=== PATIENT | male | born 1980 | race African-American/Black ===

== ENCOUNTER 2022-08-08 10:55 | Inpatient (IN) | payer OTHER ==
[2022-08-08 11:35] VITALS: BMI 22.2
[2022-08-08] MEDS ORDERED: BENZOCAINE/MENTHOL (CHLORASEPTIC ) LOZENGE MM PRN (13:03)
[2022-08-08] MEDS ORDERED: IBUPROFEN 400 MG TABLET (FP) PO PRN (13:03)
[2022-08-08] MEDS ORDERED: MAGNESIUM HYDROX 2400MG/30ML ORAL SUSPENSION 30 ML CUP PO PRN (13:03)
[2022-08-08] MEDS ORDERED: MAG HYDROX/AL HYDROX/SIMETH 30 ML UNIT-DOSE CUP PO PRN (13:03)
[2022-08-08] MEDS ORDERED: hydrOXYzine PAMOATE 25 MG CAPSULE (FP) PO PRN (13:03)
[2022-08-08] MEDS ORDERED: POLYETHYLENE GLYCOL (HEALTHYLAX) 3350 17 GM PACKET PO PRN (13:03)
[2022-08-08] MEDS ORDERED: IBUPROFEN 600 MG TABLET (FP) PO PRN (13:03)
[2022-08-08] MEDS ORDERED: METHOCARBAMOL 500 MG TABLET PO PRN (13:03)
[2022-08-08] MEDS ORDERED: ONDANSETRON *ODT* 4 MG TABLET SL PRN (13:03)
[2022-08-08] MEDS ORDERED: DICYCLOMINE HCL 10 MG CAPSULE PO PRN (13:03)
[2022-08-08] MEDS ORDERED: ACETAMINOPHEN 325 MG TABLET (FP) PO PRN ×2 (13:03)
[2022-08-08] MEDS ORDERED: LOPERAMIDE HCL 2 MG CAPSULE PO PRN (13:03)
[2022-08-08] MEDS ORDERED: NICOTINE POLACRILEX 2 MG GUM BUC PRN (13:03)
[2022-08-08] MEDS ORDERED: BISMUTH SUBSALICYLATE 524 MG/30 ML PO PRN (13:03)
[2022-08-08] MEDS: NICOTINE 14 MG/24 HOURS TOPICAL PATCH TD SCH (13:42)
[2022-08-08] MEDS ORDERED: NICOTINE 14 MG/24 HOURS TOPICAL PATCH TD ONE (14:04)
[2022-08-08] MEDS: NICOTINE 10 MG CARTRIDGE (INHALER) IH PRN ×3 (15:22→23:22)
[2022-08-08] MEDS ORDERED: THIAMINE HCL 100 MG TABLET (FP) PO SCH (22:00)
[2022-08-08] MEDS ORDERED: MELATONIN 5 MG TABLETS PO SCH (22:00)
[2022-08-08] MEDS ORDERED: ATORVASTATIN CA 40 MG TABLET (FP) PO SCH (22:00)
[2022-08-08] MEDS: levETIRAcetam XR 750 MG TAB PO SCH (22:26)
[2022-08-09] MEDS ORDERED: PRENATAL VITAMINS W/ FOLIC ACID TABLET (FP) PO SCH (10:00)
[2022-08-09] MEDS: NICOTINE 14 MG/24 HOURS TOPICAL PATCH TD SCH (10:08)
[2022-08-09] MEDS: levETIRAcetam XR 750 MG TAB PO SCH (10:08)
[2022-08-09] MEDS: NICOTINE 10 MG CARTRIDGE (INHALER) IH PRN (10:21)
[2022-08-09 11:18] LABS: HEMATOCRIT 35.4 % (35.4-49); HEMOGLOBIN 11.8 GM/dL (11.7-16.9); MCH 33.2 pg (25.7-33.7); MCHC 33.3 g/dl (32.0-35.9); MEAN CELL VOLUME 99.6 fl (80-96); PLATELET COUNT 114 10^3/uL (134-434); RBC 3.56 M/mm3 (4.00-5.60); RDW 15.9 % (11.9-15.9); WHITE BLOOD COUNT 4.8 K/mm3 (4.0-10.0)
[2022-08-09 11:22] LABS: BLOOD UREA NITROGEN 13.7 mg/dL (7-18); CALCIUM 9.5 mg/dL (8.5-10.1)
[2022-08-09 11:24] LABS: ALBUMIN 4.3 g/dl (3.4-5.0)
[2022-08-09 11:27] LABS: CREATININE 1.2 mg/dL (0.55-1.3)
[2022-08-09 11:28] LABS: BILIRUBIN,TOTAL 0.5 mg/dL (0.2-1); TOT PROT 8.5 g/dl (6.4-8.2)
[2022-08-09 12:48] VITALS: BP 134/88; PULSE 100; RESP 18; TEMP 97.8
== END 2022-08-09 01:22 | disposition other institution (70) | DRG 775 ==
LOC: YASAS 10:55 → Y3N 13:51
PROVIDERS: ADMIT Allergy & Immunology; ATTEND Surgery
PROC: HZ2ZZZZ Detoxification Services for Substance Abuse Treatment (ICD-10-PCS; principal; 2022-08-08)
DX: F10.230 Alcohol dependence with withdrawal, uncomplicated (principal); F17.210 Nicotine dependence, cigarettes, uncomplicated; F41.9 Anxiety disorder, unspecified; Z21 Asymptomatic human immunodeficiency virus [HIV] infection status; E78.1 Pure hyperglyceridemia; R56.9 Unspecified convulsions; Z86.19 Personal history of other infectious and parasitic diseases
CPT/HCPCS: 36415; 80053; 85027; 86593; 86780; 87811; 93005; 93010; C9803-CS; U0003; U0005

== ENCOUNTER 2022-08-09 13:31 | Inpatient (IN) | payer OTHER ==
[2022-08-09] MEDS ORDERED: P-EPHED 60MG/TRIPROLIDI 2.5MG TABLET PO PRN (15:01)
[2022-08-09] MEDS ORDERED: BENZOCAINE/MENTHOL (CHLORASEPTIC ) LOZENGE MM PRN (15:01)
[2022-08-09] MEDS ORDERED: MAG HYDROX/AL HYDROX/SIMETH 30 ML UNIT-DOSE CUP PO PRN (15:01)
[2022-08-09] MEDS ORDERED: LOPERAMIDE HCL 2 MG CAPSULE PO PRN (15:01)
[2022-08-09] MEDS ORDERED: MAGNESIUM HYDROX 2400MG/30ML ORAL SUSPENSION 30 ML CUP PO PRN (15:01)
[2022-08-09] MEDS ORDERED: POLYETHYLENE GLYCOL (HEALTHYLAX) 3350 17 GM PACKET PO PRN (15:01)
[2022-08-09] MEDS ORDERED: ACETAMINOPHEN 325 MG TABLET (FP) PO PRN (15:01)
[2022-08-09] MEDS ORDERED: guaiFENesin 200 MG/10 ML 10 ML UNIT-DOSE CUPS PO PRN (15:01)
[2022-08-09] MEDS: NICOTINE 10 MG CARTRIDGE (INHALER) IH PRN (19:14)
[2022-08-09] MEDS: MELATONIN 5 MG TABLETS PO SCH (21:06)
[2022-08-09] MEDS: THIAMINE HCL 100 MG TABLET (FP) PO SCH (21:06)
[2022-08-09] MEDS: ATORVASTATIN CA 40 MG TABLET (FP) PO SCH (21:08)
[2022-08-09] MEDS: levETIRAcetam XR 750 MG TAB PO SCH (23:30)
[2022-08-10] MEDS: NICOTINE 10 MG CARTRIDGE (INHALER) IH PRN ×2 (08:21→21:13)
[2022-08-10] MEDS: levETIRAcetam XR 750 MG TAB PO SCH ×2 (10:35→21:13)
[2022-08-10] MEDS: PRENATAL VITAMINS W/ FOLIC ACID TABLET (FP) PO SCH (10:35)
[2022-08-10] MEDS: NICOTINE 7 MG/24 HOURS TOPICAL PATCH TD SCH (10:35)
[2022-08-10] MEDS: MELATONIN 5 MG TABLETS PO SCH (21:12)
[2022-08-10] MEDS: ATORVASTATIN CA 40 MG TABLET (FP) PO SCH (21:12)
[2022-08-10] MEDS: THIAMINE HCL 100 MG TABLET (FP) PO SCH (21:12)
[2022-08-11] MEDS: PRENATAL VITAMINS W/ FOLIC ACID TABLET (FP) PO SCH (10:55)
[2022-08-11] MEDS: NICOTINE 7 MG/24 HOURS TOPICAL PATCH TD SCH (10:55)
[2022-08-11] MEDS: NICOTINE 10 MG CARTRIDGE (INHALER) IH PRN ×2 (10:55→21:15)
[2022-08-11] MEDS: levETIRAcetam XR 750 MG TAB PO SCH ×2 (10:55→21:15)
[2022-08-11] MEDS: ATORVASTATIN CA 40 MG TABLET (FP) PO SCH (21:15)
[2022-08-11] MEDS: MELATONIN 5 MG TABLETS PO SCH (21:16)
[2022-08-11] MEDS: THIAMINE HCL 100 MG TABLET (FP) PO SCH (21:16)
[2022-08-12] MEDS: NICOTINE 7 MG/24 HOURS TOPICAL PATCH TD SCH (10:33)
[2022-08-12] MEDS: PRENATAL VITAMINS W/ FOLIC ACID TABLET (FP) PO SCH (10:33)
[2022-08-12] MEDS: levETIRAcetam XR 750 MG TAB PO SCH ×2 (10:33→21:08)
[2022-08-12] MEDS: NICOTINE 10 MG CARTRIDGE (INHALER) IH PRN ×2 (10:34→21:09)
[2022-08-12] MEDS: THIAMINE HCL 100 MG TABLET (FP) PO SCH (21:07)
[2022-08-12] MEDS: ATORVASTATIN CA 40 MG TABLET (FP) PO SCH (21:07)
[2022-08-12] MEDS: MELATONIN 5 MG TABLETS PO SCH (22:32)
[2022-08-13] MEDS: PRENATAL VITAMINS W/ FOLIC ACID TABLET (FP) PO SCH (10:53)
[2022-08-13] MEDS: NICOTINE 7 MG/24 HOURS TOPICAL PATCH TD SCH (10:53)
[2022-08-13] MEDS: NICOTINE 10 MG CARTRIDGE (INHALER) IH PRN ×2 (10:53→21:10)
[2022-08-13] MEDS: levETIRAcetam XR 750 MG TAB PO SCH ×2 (10:54→21:10)
[2022-08-13] MEDS: THIAMINE HCL 100 MG TABLET (FP) PO SCH (21:09)
[2022-08-13] MEDS: ATORVASTATIN CA 40 MG TABLET (FP) PO SCH (21:10)
[2022-08-13] MEDS: MELATONIN 5 MG TABLETS PO SCH (22:28)
[2022-08-14] MEDS: PRENATAL VITAMINS W/ FOLIC ACID TABLET (FP) PO SCH (10:18)
[2022-08-14] MEDS: NICOTINE 7 MG/24 HOURS TOPICAL PATCH TD SCH (10:18)
[2022-08-14] MEDS: levETIRAcetam XR 750 MG TAB PO SCH ×2 (10:19→21:29)
[2022-08-14] MEDS: NICOTINE 10 MG CARTRIDGE (INHALER) IH PRN ×2 (10:19→21:29)
[2022-08-14] MEDS ORDERED: ATORVASTATIN CA 20 MG TABLET (FP) ONE (18:42)
[2022-08-14] MEDS: THIAMINE HCL 100 MG TABLET (FP) PO SCH (21:29)
[2022-08-14] MEDS: ATORVASTATIN CA 40 MG TABLET (FP) PO SCH (21:29)
[2022-08-14] MEDS: MELATONIN 5 MG TABLETS PO SCH (22:41)
[2022-08-15] MEDS: NICOTINE 7 MG/24 HOURS TOPICAL PATCH TD SCH (10:23)
[2022-08-15] MEDS: PRENATAL VITAMINS W/ FOLIC ACID TABLET (FP) PO SCH (10:23)
[2022-08-15] MEDS: NICOTINE 10 MG CARTRIDGE (INHALER) IH PRN ×2 (10:23→21:11)
[2022-08-15] MEDS: levETIRAcetam XR 750 MG TAB PO SCH ×2 (10:23→21:10)
[2022-08-15] MEDS: ATORVASTATIN CA 40 MG TABLET (FP) PO SCH (21:10)
[2022-08-15] MEDS: THIAMINE HCL 100 MG TABLET (FP) PO SCH (21:10)
[2022-08-15] MEDS: traZODone HCL 50 MG TABLET (FP) PO SCH (21:11)
[2022-08-15] MEDS: MELATONIN 5 MG TABLETS PO SCH (22:55)
[2022-08-16] MEDS: PRENATAL VITAMINS W/ FOLIC ACID TABLET (FP) PO SCH (09:34)
[2022-08-16] MEDS: NICOTINE 7 MG/24 HOURS TOPICAL PATCH TD SCH (09:34)
[2022-08-16] MEDS: levETIRAcetam XR 750 MG TAB PO SCH ×2 (09:34→21:28)
[2022-08-16] MEDS: GABAPENTIN 100 MG CAPSULE PO SCH ×2 (13:21→21:27)
[2022-08-16] MEDS: ATORVASTATIN CA 40 MG TABLET (FP) PO SCH (21:27)
[2022-08-16] MEDS: MELATONIN 5 MG TABLETS PO SCH (21:27)
[2022-08-16] MEDS: THIAMINE HCL 100 MG TABLET (FP) PO SCH (21:27)
[2022-08-16] MEDS: traZODone HCL 50 MG TABLET (FP) PO SCH (21:28)
[2022-08-17] MEDS: GABAPENTIN 100 MG CAPSULE PO SCH ×3 (06:23→21:06)
[2022-08-17] MEDS: PRENATAL VITAMINS W/ FOLIC ACID TABLET (FP) PO SCH (10:41)
[2022-08-17] MEDS: NICOTINE 7 MG/24 HOURS TOPICAL PATCH TD SCH (10:41)
[2022-08-17] MEDS: levETIRAcetam XR 750 MG TAB PO SCH ×2 (10:41→21:07)
[2022-08-17] MEDS: NICOTINE 10 MG CARTRIDGE (INHALER) IH PRN (14:11)
[2022-08-17] MEDS: ATORVASTATIN CA 40 MG TABLET (FP) PO SCH (21:06)
[2022-08-17] MEDS: THIAMINE HCL 100 MG TABLET (FP) PO SCH (21:07)
[2022-08-17] MEDS: MELATONIN 5 MG TABLETS PO SCH (22:13)
[2022-08-17] MEDS: traZODone HCL 50 MG TABLET (FP) PO SCH (22:13)
[2022-08-18] MEDS: GABAPENTIN 100 MG CAPSULE PO SCH ×3 (06:22→21:30)
[2022-08-18] MEDS: PRENATAL VITAMINS W/ FOLIC ACID TABLET (FP) PO SCH (09:54)
[2022-08-18] MEDS: NICOTINE 7 MG/24 HOURS TOPICAL PATCH TD SCH (09:55)
[2022-08-18] MEDS: levETIRAcetam XR 750 MG TAB PO SCH ×2 (09:55→21:30)
[2022-08-18] MEDS: NICOTINE 10 MG CARTRIDGE (INHALER) IH PRN ×2 (09:56→21:30)
[2022-08-18] MEDS: ATORVASTATIN CA 40 MG TABLET (FP) PO SCH (21:29)
[2022-08-18] MEDS: THIAMINE HCL 100 MG TABLET (FP) PO SCH (21:29)
[2022-08-18] MEDS: traZODone HCL 50 MG TABLET (FP) PO SCH (22:29)
[2022-08-18] MEDS: MELATONIN 5 MG TABLETS PO SCH (22:29)
[2022-08-19] MEDS: GABAPENTIN 100 MG CAPSULE PO SCH ×3 (06:29→21:09)
[2022-08-19] MEDS: hydrOXYzine PAMOATE 25 MG CAPSULE (FP) PO PRN (06:29)
[2022-08-19] MEDS: levETIRAcetam XR 750 MG TAB PO SCH ×2 (10:41→21:08)
[2022-08-19] MEDS: NALTREXONE HCL 50 MG TABLET PO SCH (10:41)
[2022-08-19] MEDS: NICOTINE 7 MG/24 HOURS TOPICAL PATCH TD SCH (10:41)
[2022-08-19] MEDS: PRENATAL VITAMINS W/ FOLIC ACID TABLET (FP) PO SCH (10:41)
[2022-08-19] MEDS: MELATONIN 5 MG TABLETS PO SCH (21:09)
[2022-08-19] MEDS: THIAMINE HCL 100 MG TABLET (FP) PO SCH (21:09)
[2022-08-19] MEDS: ATORVASTATIN CA 40 MG TABLET (FP) PO SCH (21:09)
[2022-08-19] MEDS: traZODone HCL 50 MG TABLET (FP) PO SCH (21:09)
[2022-08-20] MEDS: hydrOXYzine PAMOATE 25 MG CAPSULE (FP) PO PRN (06:18)
[2022-08-20] MEDS: GABAPENTIN 100 MG CAPSULE PO SCH ×3 (06:18→21:15)
[2022-08-20] MEDS: levETIRAcetam XR 750 MG TAB PO SCH ×2 (09:47→21:16)
[2022-08-20] MEDS: PRENATAL VITAMINS W/ FOLIC ACID TABLET (FP) PO SCH (09:47)
[2022-08-20] MEDS: NALTREXONE HCL 50 MG TABLET PO SCH (09:47)
[2022-08-20] MEDS: NICOTINE 7 MG/24 HOURS TOPICAL PATCH TD SCH (09:47)
[2022-08-20] MEDS: NICOTINE 10 MG CARTRIDGE (INHALER) IH PRN ×3 (09:49→21:16)
[2022-08-20] MEDS: ATORVASTATIN CA 40 MG TABLET (FP) PO SCH (21:15)
[2022-08-20] MEDS: MELATONIN 5 MG TABLETS PO SCH (21:15)
[2022-08-20] MEDS: traZODone HCL 50 MG TABLET (FP) PO SCH (21:15)
[2022-08-20] MEDS: THIAMINE HCL 100 MG TABLET (FP) PO SCH (21:16)
[2022-08-21] MEDS: GABAPENTIN 100 MG CAPSULE PO SCH ×3 (06:17→21:14)
[2022-08-21] MEDS: hydrOXYzine PAMOATE 25 MG CAPSULE (FP) PO PRN (06:17)
[2022-08-21] MEDS: NICOTINE 7 MG/24 HOURS TOPICAL PATCH TD SCH (11:10)
[2022-08-21] MEDS: NALTREXONE HCL 50 MG TABLET PO SCH (11:10)
[2022-08-21] MEDS: levETIRAcetam XR 750 MG TAB PO SCH ×2 (11:10→21:14)
[2022-08-21] MEDS: PRENATAL VITAMINS W/ FOLIC ACID TABLET (FP) PO SCH (11:10)
[2022-08-21] MEDS: NICOTINE 10 MG CARTRIDGE (INHALER) IH PRN ×2 (11:10→19:29)
[2022-08-21] MEDS: traZODone HCL 50 MG TABLET (FP) PO SCH (21:14)
[2022-08-21] MEDS: MELATONIN 5 MG TABLETS PO SCH (21:14)
[2022-08-21] MEDS: ATORVASTATIN CA 40 MG TABLET (FP) PO SCH (21:14)
[2022-08-21] MEDS: THIAMINE HCL 100 MG TABLET (FP) PO SCH (21:15)
[2022-08-22] MEDS: GABAPENTIN 100 MG CAPSULE PO SCH ×3 (06:27→21:03)
[2022-08-22] MEDS: NICOTINE 10 MG CARTRIDGE (INHALER) IH PRN ×2 (06:27→21:04)
[2022-08-22] MEDS: PRENATAL VITAMINS W/ FOLIC ACID TABLET (FP) PO SCH (09:46)
[2022-08-22] MEDS: NICOTINE 7 MG/24 HOURS TOPICAL PATCH TD SCH (09:46)
[2022-08-22] MEDS: levETIRAcetam XR 750 MG TAB PO SCH ×2 (09:46→21:03)
[2022-08-22] MEDS ORDERED: NALTREXONE MICROSPHERES (VIVITROL) 380 MG DISP.SYRIN IM ONE (10:42)
[2022-08-22] MEDS: NALTREXONE HCL 50 MG TABLET PO SCH (10:55)
[2022-08-22] MEDS: BICTEGRAV/EMTRICIT/TENOFOV (BIKTARVY) 50-200-25 MG TABLET PO SCH (15:20)
[2022-08-22] MEDS: THIAMINE HCL 100 MG TABLET (FP) PO SCH (21:03)
[2022-08-22] MEDS: ATORVASTATIN CA 40 MG TABLET (FP) PO SCH (21:04)
[2022-08-22] MEDS: MELATONIN 5 MG TABLETS PO SCH (22:30)
[2022-08-22] MEDS: traZODone HCL 50 MG TABLET (FP) PO SCH (22:30)
[2022-08-23] MEDS: GABAPENTIN 100 MG CAPSULE PO SCH ×3 (06:55→22:05)
[2022-08-23] MEDS: BICTEGRAV/EMTRICIT/TENOFOV (BIKTARVY) 50-200-25 MG TABLET PO SCH (07:11)
[2022-08-23] MEDS: PRENATAL VITAMINS W/ FOLIC ACID TABLET (FP) PO SCH (10:48)
[2022-08-23] MEDS: levETIRAcetam XR 750 MG TAB PO SCH ×2 (10:48→22:05)
[2022-08-23] MEDS: NICOTINE 7 MG/24 HOURS TOPICAL PATCH TD SCH (10:49)
[2022-08-23] MEDS: NICOTINE 10 MG CARTRIDGE (INHALER) IH PRN ×2 (10:50→17:41)
[2022-08-23] MEDS: IBUPROFEN 400 MG TABLET (FP) PO PRN (13:18)
[2022-08-23] MEDS: MELATONIN 5 MG TABLETS PO SCH (22:04)
[2022-08-23] MEDS: ATORVASTATIN CA 40 MG TABLET (FP) PO SCH (22:04)
[2022-08-23] MEDS: traZODone HCL 50 MG TABLET (FP) PO SCH (22:04)
[2022-08-23] MEDS: THIAMINE HCL 100 MG TABLET (FP) PO SCH (22:05)
[2022-08-24] MEDS: GABAPENTIN 100 MG CAPSULE PO SCH ×3 (06:02→21:04)
[2022-08-24] MEDS: hydrOXYzine PAMOATE 25 MG CAPSULE (FP) PO PRN (06:02)
[2022-08-24] MEDS: NICOTINE 7 MG/24 HOURS TOPICAL PATCH TD SCH (09:55)
[2022-08-24] MEDS: levETIRAcetam XR 750 MG TAB PO SCH ×2 (09:55→21:04)
[2022-08-24] MEDS: PRENATAL VITAMINS W/ FOLIC ACID TABLET (FP) PO SCH (09:55)
[2022-08-24] MEDS: NICOTINE 10 MG CARTRIDGE (INHALER) IH PRN ×2 (09:56→21:05)
[2022-08-24] MEDS: DARUNAVIR/COB/EMTRI/TENOF (SYMTUZA) TABLET (NF) PO SCH (12:45)
[2022-08-24] MEDS: ATORVASTATIN CA 40 MG TABLET (FP) PO SCH (21:04)
[2022-08-24] MEDS: THIAMINE HCL 100 MG TABLET (FP) PO SCH (21:04)
[2022-08-24] MEDS: MELATONIN 5 MG TABLETS PO SCH (22:43)
[2022-08-24] MEDS: traZODone HCL 50 MG TABLET (FP) PO SCH (22:43)
[2022-08-25] MEDS: hydrOXYzine PAMOATE 25 MG CAPSULE (FP) PO PRN (06:14)
[2022-08-25] MEDS: GABAPENTIN 100 MG CAPSULE PO SCH ×3 (06:14→21:07)
[2022-08-25] MEDS: DARUNAVIR/COB/EMTRI/TENOF (SYMTUZA) TABLET (NF) PO SCH (07:08)
[2022-08-25] MEDS: NICOTINE 7 MG/24 HOURS TOPICAL PATCH TD SCH (10:18)
[2022-08-25] MEDS: levETIRAcetam XR 750 MG TAB PO SCH ×2 (10:18→21:07)
[2022-08-25] MEDS: NICOTINE 10 MG CARTRIDGE (INHALER) IH PRN ×2 (10:18→21:07)
[2022-08-25] MEDS: PRENATAL VITAMINS W/ FOLIC ACID TABLET (FP) PO SCH (10:18)
[2022-08-25] MEDS: ATORVASTATIN CA 40 MG TABLET (FP) PO SCH (21:07)
[2022-08-25] MEDS: THIAMINE HCL 100 MG TABLET (FP) PO SCH (21:07)
[2022-08-25] MEDS: traZODone HCL 50 MG TABLET (FP) PO SCH (22:34)
[2022-08-25] MEDS: MELATONIN 5 MG TABLETS PO SCH (22:34)
[2022-08-26] MEDS: GABAPENTIN 100 MG CAPSULE PO SCH ×3 (06:21→21:55)
[2022-08-26] MEDS: hydrOXYzine PAMOATE 25 MG CAPSULE (FP) PO PRN (06:21)
[2022-08-26] MEDS: DARUNAVIR/COB/EMTRI/TENOF (SYMTUZA) TABLET (NF) PO SCH (07:02)
[2022-08-26] MEDS: PRENATAL VITAMINS W/ FOLIC ACID TABLET (FP) PO SCH (09:53)
[2022-08-26] MEDS: levETIRAcetam XR 750 MG TAB PO SCH ×2 (09:53→21:55)
[2022-08-26] MEDS: NICOTINE 7 MG/24 HOURS TOPICAL PATCH TD SCH (09:54)
[2022-08-26] MEDS: NICOTINE 10 MG CARTRIDGE (INHALER) IH PRN (14:35)
[2022-08-26] MEDS: MELATONIN 5 MG TABLETS PO SCH (21:54)
[2022-08-26] MEDS: traZODone HCL 50 MG TABLET (FP) PO SCH (21:54)
[2022-08-26] MEDS: THIAMINE HCL 100 MG TABLET (FP) PO SCH (21:54)
[2022-08-26] MEDS: ATORVASTATIN CA 40 MG TABLET (FP) PO SCH (21:55)
[2022-08-27] MEDS: GABAPENTIN 100 MG CAPSULE PO SCH ×3 (06:28→21:09)
[2022-08-27] MEDS: hydrOXYzine PAMOATE 25 MG CAPSULE (FP) PO PRN (06:28)
[2022-08-27] MEDS: DARUNAVIR/COB/EMTRI/TENOF (SYMTUZA) TABLET (NF) PO SCH (07:05)
[2022-08-27] MEDS: PRENATAL VITAMINS W/ FOLIC ACID TABLET (FP) PO SCH (10:52)
[2022-08-27] MEDS: NICOTINE 10 MG CARTRIDGE (INHALER) IH PRN ×2 (10:52→21:10)
[2022-08-27] MEDS: NICOTINE 7 MG/24 HOURS TOPICAL PATCH TD SCH (10:52)
[2022-08-27] MEDS: levETIRAcetam XR 750 MG TAB PO SCH ×2 (10:52→21:09)
[2022-08-27] MEDS: ATORVASTATIN CA 40 MG TABLET (FP) PO SCH (21:09)
[2022-08-27] MEDS: THIAMINE HCL 100 MG TABLET (FP) PO SCH (21:09)
[2022-08-27] MEDS: traZODone HCL 50 MG TABLET (FP) PO SCH (22:50)
[2022-08-27] MEDS: MELATONIN 5 MG TABLETS PO SCH (22:50)
[2022-08-28] MEDS: hydrOXYzine PAMOATE 25 MG CAPSULE (FP) PO PRN ×3 (06:13→22:45)
[2022-08-28] MEDS: GABAPENTIN 100 MG CAPSULE PO SCH ×3 (06:13→21:47)
[2022-08-28] MEDS: DARUNAVIR/COB/EMTRI/TENOF (SYMTUZA) TABLET (NF) PO SCH (07:04)
[2022-08-28] MEDS: IBUPROFEN 400 MG TABLET (FP) PO PRN (07:24)
[2022-08-28] MEDS: PRENATAL VITAMINS W/ FOLIC ACID TABLET (FP) PO SCH (10:34)
[2022-08-28] MEDS: levETIRAcetam XR 750 MG TAB PO SCH ×2 (10:34→21:47)
[2022-08-28] MEDS: NICOTINE 7 MG/24 HOURS TOPICAL PATCH TD SCH (10:34)
[2022-08-28] MEDS: ATORVASTATIN CA 40 MG TABLET (FP) PO SCH (21:47)
[2022-08-28] MEDS: NICOTINE 10 MG CARTRIDGE (INHALER) IH PRN (21:47)
[2022-08-28] MEDS: THIAMINE HCL 100 MG TABLET (FP) PO SCH (21:47)
[2022-08-28] MEDS: MELATONIN 5 MG TABLETS PO SCH (22:45)
[2022-08-28] MEDS: traZODone HCL 50 MG TABLET (FP) PO SCH (22:45)
[2022-08-29] MEDS: hydrOXYzine PAMOATE 25 MG CAPSULE (FP) PO PRN ×2 (06:04→21:14)
[2022-08-29] MEDS: GABAPENTIN 100 MG CAPSULE PO SCH ×3 (06:04→21:11)
[2022-08-29] MEDS: DARUNAVIR/COB/EMTRI/TENOF (SYMTUZA) TABLET (NF) PO SCH (07:32)
[2022-08-29] MEDS: PRENATAL VITAMINS W/ FOLIC ACID TABLET (FP) PO SCH (10:56)
[2022-08-29] MEDS: levETIRAcetam XR 750 MG TAB PO SCH ×2 (10:57→21:12)
[2022-08-29] MEDS: NICOTINE 10 MG CARTRIDGE (INHALER) IH PRN ×2 (10:57→18:11)
[2022-08-29] MEDS: NICOTINE 7 MG/24 HOURS TOPICAL PATCH TD SCH (10:58)
[2022-08-29] MEDS: MELATONIN 5 MG TABLETS PO SCH (21:11)
[2022-08-29] MEDS: ATORVASTATIN CA 40 MG TABLET (FP) PO SCH (21:11)
[2022-08-29] MEDS: THIAMINE HCL 100 MG TABLET (FP) PO SCH (21:11)
[2022-08-29] MEDS: traZODone HCL 50 MG TABLET (FP) PO SCH (21:13)
[2022-08-30] MEDS: hydrOXYzine PAMOATE 25 MG CAPSULE (FP) PO PRN ×2 (06:12→14:13)
[2022-08-30] MEDS: GABAPENTIN 100 MG CAPSULE PO SCH ×3 (06:12→21:13)
[2022-08-30] MEDS: DARUNAVIR/COB/EMTRI/TENOF (SYMTUZA) TABLET (NF) PO SCH (07:27)
[2022-08-30] MEDS: levETIRAcetam XR 750 MG TAB PO SCH ×2 (09:34→21:12)
[2022-08-30] MEDS: NICOTINE 7 MG/24 HOURS TOPICAL PATCH TD SCH (09:34)
[2022-08-30] MEDS: PRENATAL VITAMINS W/ FOLIC ACID TABLET (FP) PO SCH (09:34)
[2022-08-30] MEDS: NICOTINE 10 MG CARTRIDGE (INHALER) IH PRN ×2 (09:35→14:13)
[2022-08-30] MEDS: MELATONIN 5 MG TABLETS PO SCH (21:13)
[2022-08-30] MEDS: traZODone HCL 50 MG TABLET (FP) PO SCH (21:13)
[2022-08-30] MEDS: ATORVASTATIN CA 40 MG TABLET (FP) PO SCH (21:13)
[2022-08-30] MEDS: THIAMINE HCL 100 MG TABLET (FP) PO SCH (21:14)
[2022-08-30] MEDS: IBUPROFEN 400 MG TABLET (FP) PO PRN (21:14)
[2022-08-31] MEDS: GABAPENTIN 100 MG CAPSULE PO SCH ×3 (06:08→21:28)
[2022-08-31] MEDS: hydrOXYzine PAMOATE 25 MG CAPSULE (FP) PO PRN ×2 (06:09→21:29)
[2022-08-31] MEDS: DARUNAVIR/COB/EMTRI/TENOF (SYMTUZA) TABLET (NF) PO SCH (07:05)
[2022-08-31] MEDS: PRENATAL VITAMINS W/ FOLIC ACID TABLET (FP) PO SCH (10:08)
[2022-08-31] MEDS: NICOTINE 10 MG CARTRIDGE (INHALER) IH PRN ×2 (10:08→21:29)
[2022-08-31] MEDS: NICOTINE 7 MG/24 HOURS TOPICAL PATCH TD SCH (10:08)
[2022-08-31] MEDS: levETIRAcetam XR 750 MG TAB PO SCH ×2 (10:08→21:28)
[2022-08-31] MEDS: THIAMINE HCL 100 MG TABLET (FP) PO SCH (21:28)
[2022-08-31] MEDS: ATORVASTATIN CA 40 MG TABLET (FP) PO SCH (21:28)
[2022-08-31] MEDS: MELATONIN 5 MG TABLETS PO SCH (22:21)
[2022-08-31] MEDS: traZODone HCL 50 MG TABLET (FP) PO SCH (22:21)
[2022-09-01] MEDS: GABAPENTIN 100 MG CAPSULE PO SCH ×3 (06:12→21:35)
[2022-09-01] MEDS: hydrOXYzine PAMOATE 25 MG CAPSULE (FP) PO PRN (06:12)
[2022-09-01 06:56] VITALS: PULSE 94
[2022-09-01] MEDS: DARUNAVIR/COB/EMTRI/TENOF (SYMTUZA) TABLET (NF) PO SCH (07:09)
[2022-09-01] MEDS: PRENATAL VITAMINS W/ FOLIC ACID TABLET (FP) PO SCH (09:29)
[2022-09-01] MEDS: NICOTINE 7 MG/24 HOURS TOPICAL PATCH TD SCH (09:29)
[2022-09-01] MEDS: levETIRAcetam XR 750 MG TAB PO SCH ×2 (09:29→21:35)
[2022-09-01] MEDS: NICOTINE 10 MG CARTRIDGE (INHALER) IH PRN ×2 (09:29→14:02)
[2022-09-01] MEDS: IBUPROFEN 400 MG TABLET (FP) PO PRN (14:00)
[2022-09-01] MEDS: THIAMINE HCL 100 MG TABLET (FP) PO SCH (21:34)
[2022-09-01] MEDS: ATORVASTATIN CA 40 MG TABLET (FP) PO SCH (21:35)
[2022-09-01] MEDS: MELATONIN 5 MG TABLETS PO SCH (22:41)
[2022-09-01] MEDS: traZODone HCL 50 MG TABLET (FP) PO SCH (22:41)
[2022-09-02] MEDS: GABAPENTIN 100 MG CAPSULE PO SCH (06:32)
[2022-09-02] MEDS: hydrOXYzine PAMOATE 25 MG CAPSULE (FP) PO PRN (06:32)
[2022-09-02] MEDS: DARUNAVIR/COB/EMTRI/TENOF (SYMTUZA) TABLET (NF) PO SCH (07:03)
[2022-09-02 07:04] VITALS: BP 100/63; RESP 17; TEMP 97.7
[2022-09-02] MEDS: PRENATAL VITAMINS W/ FOLIC ACID TABLET (FP) PO SCH (10:09)
[2022-09-02] MEDS: levETIRAcetam XR 750 MG TAB PO SCH (10:10)
[2022-09-02] MEDS: NICOTINE 7 MG/24 HOURS TOPICAL PATCH TD SCH (10:10)
[2022-09-02] MEDS: NICOTINE 10 MG CARTRIDGE (INHALER) IH PRN (10:10)
== END 2022-09-02 10:12 | disposition home or self-care (01) | DRG 772 ==
LOC: YASAS 13:31 → Y3W 13:34
PROVIDERS: ADMIT Allergy & Immunology; ATTEND Allergy & Immunology
PROC: HZ42ZZZ Group Counseling for Substance Abuse Treatment, Cognitive-Behavioral (ICD-10-PCS; principal; 2022-08-09)
DX: F10.20 Alcohol dependence, uncomplicated (principal); F17.210 Nicotine dependence, cigarettes, uncomplicated; F41.9 Anxiety disorder, unspecified; F32.A Depression, unspecified; Z21 Asymptomatic human immunodeficiency virus [HIV] infection status; G62.9 Polyneuropathy, unspecified; R56.1 Post traumatic seizures; E78.1 Pure hyperglyceridemia; Z86.19 Personal history of other infectious and parasitic diseases
CPT/HCPCS: 36415; 80177; 82947; 82962; 83036; 86803; J2315